=== PATIENT | female | born 1990 | race Caucasian/White ===

== ENCOUNTER 2018-10-25 11:27 | Emergency (ER) | payer OTHER ==
[2018-10-25 13:34] VITALS: BP 100/64
--- NOTE | 2018-10-25 13:46 | UC ---
Throat Pain/Nasal Arnie HPI - HPI Summary HPI Summary: Pt c/o nasal congestion, malaise, sinus tenderness, pain, BARBER, ST, PND X 4 days. - History of Current Complaint Chief Complaint: UCGeneralIllness Stated Complaint: SORE THROAT, SINUS PRESSURE Time Seen by Provider: 10/25/18 13:32 Hx Obtained From: Patient Hx Last Menstrual Period: mirena ?: No Onset/Duration: Gradual Onset, Lasting Days, Still Present, Worse Since - onset Severity: Moderate Pain Intensity: 0 Associated Signs & Symptoms: Positive: Dysphagia, Sinus Discomfort Related History: Seasonal Allergies - Epiglottits Risk Factors Epiglottis Risk Factors: Negative - Allergies/Home Medications Allergies/Adverse Reactions: Allergies Allergy/AdvReac Type Severity Reaction Status Date / Time No Known Allergies Allergy Verified 12/14/15 12:45 Home Medications: Home Medications ALPRAZolam TAB* [Xanax TAB*] 0.25 mg PO Q6H PRN 10/25/18 [History Confirmed 06/04] LORazepam TAB(*) [Ativan 0.5 MG TAB (*)] 0.5 mg PO BEDTIME PRN 10/25/18 [ History Confirmed 10/25/18] Levonorgestrel (Iud) [Mirena IUD] 20 mcg IU ONCE 10/25/18 [History Confirmed 06/04] PMH/Surg Hx/FS Hx/Imm Hx Previously Healthy: Yes - Surgical History Surgical History: None - Family History Known Family History: Positive: Cardiac Disease - Social History Occupation: Employed Full-time Lives: With Family Alcohol Use: None Substance Use Type: None Smoking Status (MU): Never Smoked Tobacco Have You Smoked in the Last Year: No - Immunization History Most Recent Influenza Vaccination: july 2015 Review of Systems All Other Systems Reviewed And Are Negative: Yes Constitutional: Positive: Negative Skin: Positive: Negative Eyes: Positive: Negative ENT: Positive: Sore Throat, Ear Ache, Nasal Discharge, Sinus Congestion, Sinus Pain/Tenderness Respiratory: Positive: Cough Cardiovascular: Positive: Negative Gastrointestinal: Positive: Negative Genitourinary: Positive: Negative Motor: Positive: Negative Neurovascular: Positive: Negative Musculoskeletal: Positive: Myalgia Neurological: Positive: Headache Psychological: Positive: Negative Is Patient Immunocompromised?: No Physical Exam Triage Information Reviewed: Yes Appearance: Ill-Appearing Vital Signs: Initial Vital Signs Temp 98.0 F 10/25/18 13:30 Pulse 96 10/25/18 13:30 Resp 15 10/25/18 13:30 BP 100/64 10/25/18 13:30 Pulse Ox 98 10/25/18 13:30 Vital Signs Reviewed: Yes Eye Exam: Normal ENT: Positive: Nasal congestion, Sinus tenderness Dental Exam: Normal Neck exam: Normal Respiratory: Positive: Normal breath sounds Cardiovascular Exam: Normal Musculoskeletal Exam: Normal Neurological Exam: Normal Psychological Exam: Normal Skin Exam: Normal Throat Pain/Nasal Course/Dx - Differential Dx/Diagnosis Differential Diagnosis/HQI/PQRI: Influenza, Sinusitis, URI Provider Diagnosis: Sinusitis Discharge - Sign-Out/Discharge Documenting (check all that apply): Patient Departure All imaging exams completed and their final reports reviewed: No Studies - Discharge Plan Condition: Stable Disposition: HOME Prescriptions: Amoxicillin PO (*) [Amoxicillin 875 MG (*)] 875 mg PO Q12H #20 tab Patient Education Materials: Sinusitis (ED) Referrals: Jailene Owen, PHARMACIST'S AIDE [Primary Care Provider] - If Needed Additional Instructions: An over the counter medication that has been recommended to you is : CORICIDIN HBP COLD & FLU OTC - Billing Disposition and Condition Condition: STABLE Disposition: Home - Attestation Statements Provider Attestation: I was available for consult. This patient was seen by the JOEL. The patient was not presented to, seen by, or examined by me. EK
== END 2018-10-25 13:55 | disposition home or self-care (01) ==
LOC: UCCORT 11:27
DX: J32.9 Chronic sinusitis, unspecified (principal); M79.10 Myalgia, unspecified site
CPT/HCPCS: 99212; G0463

== ENCOUNTER 2019-09-18 19:58 | Emergency (ER) | payer OTHER ==
--- OUTSIDE RECORDS SUMMARY | 2019-09-18 20:13 | XMS REPORT | Continuity of Care Document ---
:1990 External Reference #:[id number] Author Name Camryn Berry NP (transmitted by agent of provider Manasa Westfall) Address [address] [place] [address] Care Team Providers Name Role Phone Jailene Owen, PNP-BC, WIRE TWISTING MACHINE OPERATOR, [employer] Care Team Information Driver Courier [phone] Problems Active Problems Provider Date Polyp of nasal cavity Camryn Berry NP Onset: 06/15/2019 Dizziness and giddiness Camryn Berry NP Onset: 06/15/2019 Social History Type Date Description Comments Sex Unknown Tobacco Use Start: Unknown Never Smoked Cigarettes ETOH Use Never used alcohol Recreational Drug Use Has Used In Past Allergies, Adverse Reactions, Alerts Description No Known Drug Allergies Medications Active Medications SIG Qnty Indications Ordering Date Provider Levocetirizine 1 by mouth every 90tabs Alejandro Chaudhary, 06/15/2019 Dihydrochloride day M.D. 5mg Tablets Prozac Unknown Capsules Levothyroxine Sodium 1 tab.po everyday Unknown 175mcg Tablets Xanax prn Unknown 0.5mg Tablets Meclizine HCL 1-2 by mouth Unknown 25mg Chewtabs every 6 hours as needed dizzyness History Medications Prednisone 1 by mouth every 7tabs Alejandro Chaudhary, 05/05/2019 - 5mg Tablets day M.D. 05/21/2019 Immunizations Description No Information Available Vital Signs Date Vital Result Comment 08/03/2019 1:27pm Weight 213.00 lb Height 68 inches 5'8" BMI (Body Mass Index) 32.4 kg/m2 BP Systolic 103 mmHg BP Diastolic 69 mmHg Heart Rate 85 /min O2 % BldC Oximetry 100 % Body Temperature 97.2 F Pain Level 0 06/15/2019 10:03am Weight 214.00 lb Height 68 inches 5'8" BMI (Body Mass Index) 32.5 kg/m2 BP Systolic 114 mmHg BP Diastolic 76 mmHg Heart Rate 82 /min O2 % BldC Oximetry 99 % Body Temperature 98.3 F Pain Level 0 Results Description No Information Available Procedures Date Code Description Status 06/15/2019 73143 Tympanometry Completed 05/20/2019 77541 Tympanometry Completed 05/05/2019 04936 Nasal Endoscopy, Diag. Completed 04/28/2019 28161 Nasal Endoscopy, Diag. Completed Medical Devices Description No Information Available Encounters Type Date Location Provider Dx Diagnosis Office Visit 06/15/2019 Main Office Camryn Berry J33.0 Polyp of nasal 9:00a ASSOCIATE DOCTOR cavity H69.83 Other specified disorders of Eustachian tube, bilateral Office Visit 05/20/2019 10:00a Main Office Alejandro Chaudhary M.D. 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 05/20/2019 J31.0 Chronic rhinitis Alejandro Chaudhary M.D. 05/20/2019 H69.83 Other specified disorders of Eustachian tube, Alejandro Chaudhary M.D. 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 05/05/2019 H65.21 Chronic serous otitis media, right ear Alejandro Chaudhary M.D. 05/05/2019 J34.2 Deviated nasal septum Alejandro Chaudhary M.D. 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 04/28/2019 H65.21 Chronic serous otitis media, right ear Alejandro Chaudhary M.D. 04/28/2019 J34.2 Deviated nasal septum Alejandro Chaudhary M.D. Plan of Treatment No Information Available Functional Status Description No Information Available Mental Status Description No Information Available Referrals Refer to Reason for Referral Status Appt Date Alejandro Chaudhary M.D. AUTH FOR CT SINUS Created [address] [place] [address] [phone]
--- OUTSIDE RECORDS SUMMARY | 2019-09-18 20:13 | XMS REPORT | Continuity of Care Document ---
:1990 External Reference #:[id number] Author Name Camryn Berry NP Address [address] [place] [address] Care Team Providers Name Role Phone Jailene Owen, PNP-BC, DIRECTOR OF GLOBAL MARKETING, [employer] Care Team Information Senior Accounting Manager Problems Active Problems Provider Date Polyp of [...] Medications SIG Qnty Indications Ordering Date Provider Prednisone 1 by mouth every 3tabs Alejandro Chaudhary, 08/03/2019 10mg Tablets morning M.D. Levocetirizine 1 by mouth every 90tabs Alejandro [...] Available Procedures Date Code Description Status 06/15/2019 83504 Tympanometry Completed 05/20/2019 70270 Tympanometry Completed 05/05/2019 49326 Nasal Endoscopy, Diag. Completed 04/28/2019 92748 Nasal Endoscopy, Diag. 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 AUTH FOR CT SINUS Created [address] [place] [address] [phone]
[2019-09-18 20:22] VITALS: BP 103/63
--- NOTE | 2019-09-18 20:42 | UC ---
Throat Pain/Nasal Arnie HPI - HPI Summary HPI Summary: Patient is a 29yo female presenting at 23 weeks for sinus congestion and nonproductive cough x4 days. Notes wheezing intermittently and chest burning with cough. Denies worsening symptoms, but states they are not improving. Denies fever, chills, body aches. Denies nausea and vomiting. Denies taking anything for symptom relief because she "is unsure what she is allowed to take." Denies history of asthma. - History of Current Complaint Chief Complaint: UCGeneralIllness Stated Complaint: COUGH, CONGESTION Hx Obtained From: Patient Hx Last Menstrual Period: mirena Pain Intensity: 0 - Allergies/Home Medications Allergies/Adverse Reactions: Allergies Allergy/AdvReac Type Severity Reaction Status Date / Time No Known Allergies Allergy Verified 09/18/19 20:22 Home Medications: Home Medications Levocetirizine Dihydrochloride [Xyzal Allergy 24Hr] 5 mg PO DAILY 09/18/19 [ History Confirmed 09/18/19] Levothyroxine Sodium 200 mcg PO DAILY 09/18/19 [History Confirmed 09/18/19] Meclizine TAB* [Antivert 12.5 TAB*] 12.5 mg PO TID PRN 09/18/19 [History Confirmed 09/18/19] PMH/Surg Hx/FS Hx/Imm Hx Previously Healthy: Yes - Surgical History Surgical History: None - Family History Known Family History: Positive: Cardiac Disease - Social History Alcohol Use: None Substance Use Type: None Smoking Status (MU): Never Smoked Tobacco Have You Smoked in the Last Year: No - Immunization History Most Recent Influenza Vaccination: july 2015 Review of Systems All Other Systems Reviewed And Are Negative: Yes Constitutional: Positive: Negative. Negative: Fever, Chills, Fatigue ENT: Positive: Sinus Congestion. Negative: Sore Throat, Ear Ache, Sinus Pain/ Tenderness Respiratory: Positive: Cough - Nonproductive, Other - Intermittent wheezing. Negative: Shortness Of Breath Cardiovascular: Positive: Negative Gastrointestinal: Positive: Negative. Negative: Vomiting, Nausea Musculoskeletal: Negative: Myalgia Neurological: Negative: Headache Physical Exam Triage Information Reviewed: Yes Appearance: Well-Appearing, No Pain Distress, Well-Nourished Vital Signs: Initial Vital Signs Temp 97.8 F 09/18/19 20:18 Pulse 91 09/18/19 20:18 Resp 16 09/18/19 20:18 BP 103/63 09/18/19 20:18 Pulse Ox 100 09/18/19 20:18 Vital Signs Reviewed: Yes Eyes: Positive: Conjunctiva Clear ENT: Positive: Hearing grossly normal, Pharynx normal, Nasal congestion, TMs normal, Uvula midline. Negative: Nasal drainage, Tonsillar swelling, Tonsillar exudate, Sinus tenderness Neck exam: Normal Neck: Positive: Supple, Nontender, No Lymphadenopathy Respiratory Exam: Normal Respiratory: Positive: Lungs clear, Normal breath sounds, No respiratory distress, No accessory muscle use. Negative: Crackles, Rhonchi, Stridor, Wheezing Cardiovascular Exam: Normal Cardiovascular: Positive: RRR, No Murmur. Negative: Tachycardia Neurological: Positive: Alert Psychological: Positive: Age Appropriate Behavior Skin Exam: Normal Throat Pain/Nasal Course/Dx - Course Course Of Treatment: Patient is 29-year-old female presenting with nasal congestion and nonproductive cough 4 days. Educated on symptomatic treatment, including use of regular Delsym [id number] (safe in ), nasal sprays, inhaler, and humidifier at night. Instructed to follow up with PCP or OB if symptoms persist or worsen. Patient was understanding and agreed with the treatment plan. Discussed patient with Dr. Bermudez who also agreed with treatment plan. - Differential Dx/Diagnosis Provider Diagnosis: Viral URI, Acute bronchitis with bronchospasm Discharge ED - Sign-Out/Discharge Documenting (check all that apply): Patient Departure All imaging exams completed and their final reports reviewed: No Studies - Discharge Plan Condition: Stable Disposition: HOME Prescriptions: Albuterol HFA INHALER* [Ventolin HFA Inhaler*] 1 puff INH Q6H PRN #1 mdi PRN Reason: Sob/Wheezing Patient Education Materials: Upper Respiratory Infection (ED), Acute Bronchitis (ED), Bronchospasm (ED) Referrals: Jailene Owen NP [Primary Care Provider] - If Needed Additional Instructions: As discussed, your symptoms are caused by a virus and should resolve without treatment. You may take over the counter Delsym and use throat lozenges for relief of coughing. Use the inhaler as needed for shortness of breath/wheezing. A humidifier at night or hot steam from the shower may help alleviate symptoms. Get plenty of rest and increase your fluid intake. Follow up with your primary care provider or OB if symptoms worsen or do not resolve within 7-10 days. - Billing Disposition and Condition Condition: STABLE Disposition: Home
== END 2019-09-18 21:18 | disposition home or self-care (01) ==
LOC: UCCORT 19:58
DX: O99.512 Diseases of the respiratory system complicating pregnancy, second trimester (principal); Z3A.23 23 weeks gestation of pregnancy; J06.9 Acute upper respiratory infection, unspecified; J20.9 Acute bronchitis, unspecified
CPT/HCPCS: 99212; G0463